=== PATIENT | male | born 1985 | race Caucasian/White ===

== ENCOUNTER 2025-03-05 19:52 | Emergency (ER) | payer OTHER ==
[2025-03-05 20:19] VITALS: RESP 18; TEMP 97.8
--- NOTE | 2025-03-05 20:53 | ED ---
General Adult HPI - General Chief complaint: Neuro Symptoms/Deficit Stated complaint: Dizziness,Headache Time Seen by Provider: 03/05/25 20:05 Source: patient, RN notes reviewed Mode of arrival: ambulatory Limitations: no limitations - History of Present Illness Initial comments: 40-year-old male with no reported medical conditions today in the emergency department with complaints of headache, visual disturbances. Patient states that over the past few days he has been experiencing intermittent headaches and pressure that will start in the front of his head and radiate into his back of his head. Patient states that yesterday after he had intercourse he had a brief loss of consciousness. Throughout the day today he has been experiencing intermittent visual disturbance described as blurry vision. Currently states that he is not having a headache. He denies fevers, chills, chest pain, difficulty breathing, heart palpitations, neck pain, abdominal pain, extremity weakness. Denies dysphagia or dysarthria. - Related Data Allergies Allergy/AdvReac Type Severity Reaction Status Date / Time No Known Allergies Allergy Verified 03/05/25 20:58 Review of Systems ROS Statement: Those systems with pertinent positive or pertinent negative responses have been documented in the HPI. ROS Other: All systems not noted in ROS Statement are negative. Past Medical History Past Medical History: No Reported History History of Any Multi-Drug Resistant Organisms: None Reported Past Surgical History: No Surgical Hx Reported Past Psychological History: No Psychological Hx Reported, PTSD Smoking Status: Former smoker, Never smoker Past Alcohol Use History: Occasional Past Drug Use History: None Reported General Exam Limitations: no limitations General appearance: alert, in no apparent distress Eye exam: Present: normal appearance, PERRL, EOMI. Absent: scleral icterus, conjunctival injection, periorbital swelling ENT exam: Present: normal exam, mucous membranes moist Neck exam: Present: normal inspection. Absent: tenderness, meningismus, lymphadenopathy Respiratory exam: Present: normal lung sounds bilaterally. Absent: respiratory distress, wheezes, rales, rhonchi, stridor Cardiovascular Exam: Present: regular rate, normal rhythm, normal heart sounds. Absent: systolic murmur, diastolic murmur, rubs, gallop, clicks GI/Abdominal exam: Present: soft, normal bowel sounds. Absent: distended, tenderness, guarding, rebound, rigid Extremities exam: Present: normal inspection, full ROM, normal capillary refill. Absent: tenderness, pedal edema, joint swelling, calf tenderness Neurological exam: Present: alert, oriented X3, CN II-XII intact Course Vital Signs 03/05/25 03/05/25 03/05/25 20:14 22:20 22:57 Temperature 97.8 F Pulse Rate 61 64 51 L Respiratory 18 18 18 Rate Blood Pressure 139/90 145/109 123/86 O2 Sat by Pulse 100 100 99 Oximetry Medical Decision Making - Medical Decision Making Was pt. sent in by a medical professional or institution (, PA, VACUUM FORM OPERATOR, urgent care, hospital, or residential...) When possible be specific @ -No Did you speak to anyone other than the patient for history (EMS, parent, family, police, friend...)? What history was obtained from this source @ -No Did you review nursing and triage notes (agree or disagree)? Why? @ -I reviewed and agree with nursing and triage notes Were old charts reviewed (outside hosp., previous admission, EMS record, old EKG, old radiological studies, urgent care reports/EKG's, residential records)? Report findings @ -No old charts were reviewed Differential Diagnosis (chest pain, altered mental status, abdominal pain women, abdominal pain men, vaginal bleeding, weakness, fever, dyspnea, syncope, headache, dizziness, GI bleed, back pain, seizure, CVA, palpatations, mental health, musculoskeletal)? @ -Differential Dizziness: Benign paroxysmal positional Vertigo, Meniere's disease, otitis media, acoustic neuroma, vertebrobasilar insufficiency, cerebellar stroke, encephalitis, hypovolemic, arrhythmia, coronary artery syndrome, anemia, this is not meant to be an all-inclusive list EKG interpreted by me (3pts min.). @ -Completed at 2153 sinus bradycardia with a ventricular to 50, NV interval 159, QRS 110, QT 444, QTc 418. X-rays interpreted by me (1pt min.). @ -None done CT interpreted by me (1pt min.). @ -CT imaging of the brain without contrast no acute intracranial process. U/S interpreted by me (1pt. min.). @ -None done What testing was considered but not performed or refused? (CT, X-rays, U/S, labs)? Why? @ -None What meds were considered but not given or refused? Why? @ -None Did you discuss the management of the patient with other professionals (professionals i.e. , PA, VACUUM FORM OPERATOR, lab, RT, psych nurse, social media project manager, brick kiln burner, teacher, chief merchandising officer, nurse case management)? Give summary @ -No Was smoking cessation discussed for >3mins.? @ -No Was critical care preformed (if so, how long)? @ -No Were there social determinants of health that impacted care today? How? (Homelessness, low income, unemployed, alcoholism, drug addiction, transportation, low edu. Level, literacy, decrease access to med. care, fpc, rehab)? @ -No Was there de-escalation of care discussed even if they declined (Discuss DNR or withdrawal of care, Hospice)? DNR status @ -No What co-morbidities impacted this encounter? (DM, HTN, Smoking, COPD, CAD, Cancer, CVA, ARF, Chemo, Hep., AIDS, mental health diagnosis, sleep apnea, morbid obesity)? @ -None Was patient admitted / discharged? Hospital course, mention meds given and route, prescriptions, significant lab abnormalities, going to OR and other pertinent info. @ -Discharge. 40-year-old male presenting to emergency department complaints of headache and intermittent dizziness. Patient's blood pressure is 139/90 on arrival. Neurological examination is unremarkable. Patient provided with IV fluids. CT imaging of the brain reveals no acute intracranial process. Labs are unremarkable. EKG is in sinus rhythm. Patient's repeat blood pressure is elevated at 145/109. Prior to patient's discharge blood pressure was resolved to 123/86. Believe that symptoms may be secondary to patient's blood pressure at this time patient will not be started on antihypertensive as most recent blood pressure is stable. Recommend patient follow-up with primary care provider next 1 to 2 days for further evaluation. 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 He is provided with Tylenol for headache. Case discussed with my attending Dr. Ziegler Undiagnosed new problem with uncertain prognosis? @ -No Drug Therapy requiring intensive monitoring for toxicity (Heparin, Nitro, Insulin, Cardizem)? @ -No Were any procedures done? @ -No Diagnosis/symptom? @ -Hypertension, headache, dizziness Acute, or Chronic, or Acute on Chronic? @ -Acute Uncomplicated (without systemic symptoms) or Complicated (systemic symptoms)? @ -uncomplicated Side effects of treatment? @ -No Exacerbation, Progression, or Severe Exacerbation? @ -No Poses a threat to life or bodily function? How? (Chest pain, [place], [place], pneumonia, PE, COPD, DKA, ARF, appy, cholecystitis, CVA, Diverticulitis, Homicidal, Suicidal, threat to staff... and all critical care pts) @ -No - Lab Data Result diagrams: 03/05/25 21:02 03/05/25 21: Lab Results 03/05/25 03/05/25 03/05/25 Range/Units 21:02 21: 21: WBC 7.49 (4.50-10.00) 10*3/uL RBC 4.72 (4.40-5.60) 10*6/uL Hgb 15.0 (13.0-17.0) g/dL Hct 42.7 (39.6-50.0) % MCV 90.5 (80.0-97.0) fL MCH 31.8 (27.0-32.0) pg MCHC 35.1 (32.0-37.0) g/dL Plt Count 267 (140-440) 10*3/uL MPV 11.0 (9.5-12.2) fL Immature Gran % (Auto) 0.3 % Neutrophils % 52.2 % Lymphocytes % 36.4 % Monocytes % 9.7 % Eosinophils % 0.9 % Basophils % 0.5 % Immature Gran # 0.02 (0.00-0.04) 10*3/uL Neutrophils # 3.90 (1.80-7.70) 10*3/uL Lymphocytes # 2.73 (0.90-5.00) 10*3/uL Monocytes # 0.73 (0.20-1.00) 10*3/uL Eosinophils # 0.07 (0.04-0.35) 10*3/uL Basophils # 0.04 (0.00-0.10) 10*3/uL PT 11.1 (10.0-12.5) sec INR 1.0 (<1.2) APTT 24.9 (22.0-30.0) sec Sodium 138 (137-145) mmol/L Potassium 4.3 (3.5-5.1) mmol/L Chloride 100 (98-107) mmol/L Carbon Dioxide 26 (22-30) mmol/L Anion Gap 12 mmol/L BUN 23 H (9-20) mg/dL Creatinine 0.88 (0.66-1.25) mg/dL Est GFR (CKD-EPI)AfAm >90 (>60 ml/min/1.73 sqM) Est GFR (CKD-EPI)NonAf >90 (>60 ml/min/1.73 sqM) Glucose 87 (74-99) mg/dL Calcium 9.6 (8.4-10.2) mg/dL Magnesium 2.1 (1.6-2.3) mg/dL Total Bilirubin 0.4 (0.2-1.3) mg/dL AST 29 (17-59) U/L ALT 21 (4-49) U/L Alkaline Phosphatase 61 (38-126) U/L Total Protein 7.9 (6.3-8.2) g/dL Albumin 4.7 (3.5-5.0) g/dL Disposition Clinical Impression: Hypertension, Dizziness, nonspecific Disposition: HOME SELF-CARE Condition: Good Instructions (If sedation given, give patient instructions): Hypertension (ED) Additional Instructions: Please return to the Emergency Department if symptoms worsen or any other concerns. Please follow-up with your primary care provider for further evaluation in the next 1 to 3 days. Recommend that you check your blood pressure at home as well to continue to monitor and keep a log of this. Is patient prescribed a controlled substance at d/c from ED?: No Referrals: Andrés Francis DO [Primary Care Provider] - 1-2 days Time of Disposition: 22:57
[2025-03-05] MEDS: SODIUM CHLORIDE 0.9% 1,000 ML IV ONE (21:04)
[2025-03-05 21:11] LABS: Basophils # (A) 0.04 10*3/uL (0.00-0.10); Basophils % (A) 0.5 %; Eosinophils # (A) 0.07 10*3/uL (0.04-0.35); Eosinophils % (A) 0.9 %; HCT 42.7 % (39.6-50.0); HGB 15.0 g/dL (13.0-17.0); Lymphocytes # (A) 2.73 10*3/uL (0.90-5.00); Lymphocytes % (A) 36.4 %; MCH 31.8 pg (27.0-32.0); MCHC 35.1 g/dL (32.0-37.0); MCV 90.5 fL (80.0-97.0); Monocytes # (A) 0.73 10*3/uL (0.20-1.00); Monocytes % (A) 9.7 %; Neutrophils # (A) 3.90 10*3/uL (1.80-7.70); Neutrophils % (A) 52.2 %; Platelet Count 267 10*3/uL (140-440); RBC 4.72 10*6/uL (4.40-5.60); RDW 11.9 % (11.5-14.5); WBC 7.49 10*3/uL (4.50-10.00)
--- NOTE | 2025-03-05 21:24 | CT ---
EXAMINATION TYPE: CT brain wo con CT DLP: 1133.4 mGycm, Automated exposure control for dose reduction was used. DATE OF EXAM: 03/05/2025 9:19 PM COMPARISON: None. CLINICAL INDICATION:Male, 40 years old with history of headaches, dizziness, dizziness, near syncope TECHNIQUE: Brain: Multiple axial CT images of the brain were obtained without IV contrast. . Coronal and sagitta l reformats reviewed. FINDINGS: Brain: Extra-axial spaces: No abnormal extra-axial fluid collections. Ventricular system: Within normal limits Cerebral parenchyma: No acute intraparenchymal hemorrhage or mass effect. The fernández-white junction is well differentiated. Cerebellum: Unremarkable. Mass effect: No evidence of midline shift. Intracranial vasculature: unremarkable Soft tissues: Normal. Calvarium/osseous structures: No depressed skull fracture. Paranasal sinuses and mastoid air cells: The mastoid air cells are clear. Minimal debris within the l eft sphenoid sinus. The remaining paranasal sinuses are clear. Visualized orbits: Orbital contents are intact. IMPRESSION: No acute intracranial process. [facility], , 03/05/2025 9:21 PM
[2025-03-05 21:28] LABS: ALT 21 U/L (4-49); AST 29 U/L (17-59); African American GFR (CKD) >90 (>60 ml/min/1.73 sqM); Albumin 4.7 g/dL (3.5-5.0); Alkaline Phosphatase 61 U/L (38-126); Anion Gap 12 mmol/L; Blood Urea Nitrogen 23 mg/dL (9-20); Calcium 9.6 mg/dL (8.4-10.2); Carbon Dioxide 26 mmol/L (22-30); Chloride 100 mmol/L (98-107); Glucose 87 mg/dL (74-99); Magnesium 2.1 mg/dL (1.6-2.3); Non-African American GFR(CKD) >90 (>60 ml/min/1.73 sqM); Potassium 4.3 mmol/L (3.5-5.1); Sodium 138 mmol/L (137-145); Total Protein 7.9 g/dL (6.3-8.2)
[2025-03-05 21:29] LABS: INR 1.0 (<1.2); Partial Thromboplastin Time 24.9 sec (22.0-30.0); Prothrombin Time 11.1 sec (10.0-12.5)
[2025-03-05] MEDS: KETOROLAC 15 MG/ML 1 ML VIAL IVP STA (22:55)
[2025-03-05 22:58] VITALS: BP 123/86; PULSE 51
== END 2025-03-05 23:07 | disposition home or self-care (01) ==
LOC: EC 19:52
DX: I10 Essential (primary) hypertension (principal); R42 Dizziness and giddiness; Z87.891 Personal history of nicotine dependence
CPT/HCPCS: 36415; 93005; 80053; 83735; 85025; 85610; 85730; 70450; 99284; 96374; 96361; J1885